=== PATIENT | female | born 1955 | race Caucasian/White ===

== ENCOUNTER 2019-03-15 14:23 | Inpatient (IN) | payer BC ==
[~2019-03-15] VITALS: Ht 165.1 cm; Wt 70.6 kg
[2019-03-15] MEDS ORDERED: HYDROCHLOROTHIA25 MG PO (15:00)
[2019-03-15] MEDS ORDERED: ESTRACE1 MG PO (15:00)
[2019-03-15] MEDS ORDERED: MOEXIPRIL HCL7.5 MG PO (16:48)
--- NOTE | 2019-03-15 17:59 | NUR ---
PT ADMITTED FROM ED. IV FLUIDS STARTED D5LR AT 125, IV POTASSIUMN INFUSING. PT STATES PAIN TOLERABLE AT THIS TIME, DENIES NAUSEA. PT ON ROOM AIR, LUNG SOUNDS CLEAR. BOWEL TONES ACTIVE, NPO AT THIS TIME. CMS INTACT, WITHOUT EDMEA. SKIN GROSSLY INTACT. ADMISSION INTAKE COMPLETED. PT DENIES OTHER NEEDS AT THIS TIME.
--- NOTE | 2019-03-15 18:00 | NUR ---
PT COMPLAINT OF BURNING FROM POTASSIUM INFUSION, RATE DECREASED TO 75 ML/HR, RUNNING CONCURRENTLY, PT INSTRUCTED TO NOTIFY RN IF PAIN CONTINUES.
--- NOTE | 2019-03-15 19:20 | NUR ---
ROUNDED CHARGE. PATIENT IS RESTING IN BED. PATIENT DENIES ANY COMMENTS, QUESTIONS OR CONCERNS. NO NEEDS NOTED. CALL LIGHT IN REACH.
--- NOTE | 2019-03-15 21:25 | NUR ---
walking hallways with . no c/o pain. NPO, mouth care done by self.
--- NOTE | 2019-03-15 23:55 | NUR ---
RESTING, NO DISTRESS, IVF INFUSING, CONTINUES TO BE NPO
--- NOTE | 2019-03-16 00:42 | NUR ---
UP TO BR, VOIDED, BACK TO BED. C/O 05/10 ABD PAIN, MEDICATED WITH DILAUDID 1MG IV. IVF INFUSING, NO C/O INFUSION SITE DISCOMFORT. CALL LIGHT AT BEDSIDE, STILL NPO
--- NOTE | 2019-03-16 03:09 | NUR ---
resting, awakes easily, no further c/o abd pain, no n/v. turns self in bed. ivf infusing w/o problems. call light at bedside.
--- NOTE | 2019-03-16 05:31 | NUR ---
CURRENTLY UP TO BR, VOIDING QS. INDEPENDENT. NO BM. NO FURTHER C/O ABD PAIN OR N.V. NO ADVERSE REACTIONT TO IV ABX. CALL LIGHT AT BEDSIDE. WALKED HALLWAYS LAST NIGHT. NPO
--- NOTE | 2019-03-16 06:13 | CONS ---
[facility] [address] [place], [place] [address] Signed DATE OF CONSULTATION: 03/15/2019 CHIEF COMPLAINT: Right upper quadrant abdominal pain. HISTORY OF PRESENT ILLNESS: Jacquie is a 64-year-old female who over the last couple days has had rather significant right upper quadrant abdominal pain with nausea and anorexia. She feels a little dehydrated, she said, because of her inability to drink and to eat. She has not had any vomiting. She has probably had symptoms for a year, but the last two days have been terrible. She finally came to the emergency room for evaluation. Here in the emergency room, she certainly was tender in the right upper quadrant with unremarkable vital signs. White count is normal, but her liver function tests and lipase are elevated. She also has a positive urinalysis. Her potassium is running a bit low as well. She underwent an ultrasound of right upper quadrant. There were multiple stones, sludge and thickened gallbladder wall with a positive Garza sign. The common bile duct is equivocally dilated. Consequently, I was asked to see her as a general surgeon on-call. In the meantime, she has received some IV fluid, cefepime, Flagyl and Toradol. PAST MEDICAL HISTORY: Hypertension and chronic vertigo. PAST SURGICAL HISTORY: , bilateral tubal ligation subsequently reversed later and exploratory laparotomy through a Pfannenstiel incision with an appendectomy and then later a full hysterectomy at age 41 because of strong family history of ovarian cancer. SOCIAL HISTORY: She does not smoke or drink. She is . She is a homemaker and drives. She has 2 children. Her 3rd child about 13 days after . They prefer the [facility], Dr. Jarrod Ni is her primary care provider. FAMILY HISTORY: Father of diabetes at age 32. Mom had obesity and rheumatic fever, ended up with aortic valve replacement by Dr. Lacey, followed by congestive heart failure and . REVIEW OF SYSTEMS: She had 10 systems reviewed. ALLERGIES: We talked at length about her morphine allergy. She was on a morphine drip and it dropped her respiratory rate. She ended up in the ICU, intubated for a short time. Also, codeine gives her hives and headache. Electronically Signed By: LUIS DANIEL ALLEN MD 03/16/19 0613 PATIENT NAME: JACQUIE REDMOND CONSULTATION DATE OF : 57 REPORT #: [id number] PHYSICIAN: LUIS DANIEL ALLEN MD PCP: JARROD NI MD REPORT IS CONFIDENTIAL AND NOT TO BE RELEASED WITHOUT AUTHORIZATION [facility] [address] [place], [place] [address] Signed MEDICATIONS: Hydrochlorothiazide, estradiol, and Univasc. PHYSICAL EXAMINATION: VITAL SIGNS: Her blood pressure is 108/66, her heart rate is 82, respiratory rate 16, temperature is 98.2. She is 100% on room air. She is 5 feet 5 inches and 67 kg. GENERAL: Jacquie is a 64-year-old female who generally appears healthy and at her stated age. She is lying supine in her ER bed. Her is in the room. She is uncomfortable but not toxic. She is not jaundiced. LUNGS: Clear to auscultation. HEART: Regular rate and rhythm. ABDOMEN: Soft and flat. She is tender with localized peritoneal signs and symptoms in the right upper quadrant to deep palpation. LABORATORY DATA: Her white blood cell count is 4.9, hemoglobin 16, neutrophils 60. Potassium is 3.3, BUN 12, creatinine 0.79, total bilirubin 1.6, AST 615, ALT 743, alkaline phosphatase 164, albumin 4.4, lipase 7490. Urinalysis showed white blood cells, leukocyte esterase, and bacteria. The urine culture of course is pending. RADIOGRAPHIC STUDIES: Ultrasound of the gallbladder was performed and has multiple stones with sludge and a thickened gallbladder wall with a positive Garza sign. The common bile duct is equivocally dilated. ASSESSMENT AND PLAN: Jacquie is a 64-year-old female who presents with classic gallstone pancreatitis. I reviewed her findings in detail with her and her . We discussed the location and function of the gallbladder. We discussed laparoscopic versus open cholecystectomy. They understand the expected intraop and postop course along with hospital course, and we had reviewed the risk as well. We also reviewed the potential for the ERCP. She has a 3-7% chance of having a stone in that common bile duct. In the meantime, we are going to admit her and treat her conservatively with IV fluids and some ice chips and antibiotics, and we will correct her potassium levels and repeat the labs in the morning. Possibly tomorrow the next day depending on her course, we will determine when we are able to do her surgery and whether or not she will need ERCP. They have expressed understanding and agreed above plan. Luis Daniel Allen MD Electronically Signed By: LUIS DANIEL ALLEN MD 03/16/19 0613 PATIENT NAME: JACQUIE REDMOND CONSULTATION DATE OF : 57 REPORT #: [id number] PHYSICIAN: LUIS DANIEL ALLEN MD PCP: JARROD NI MD REPORT IS CONFIDENTIAL AND NOT TO BE RELEASED WITHOUT AUTHORIZATION [address] [place] [address] Signed ALB/MODL /[id number] cc: Jarrod Ni MD Copies: JARROD NI MD ~ Electronically Signed By: LUIS DANIEL ALLEN MD 03/16/19 0613 PATIENT NAME: JACQUIE REDMOND CONSULTATION DATE OF : 57 REPORT #: [id number] PHYSICIAN: LUIS DANIEL ALLEN MD PCP: JARROD NI MD REPORT IS CONFIDENTIAL AND NOT TO BE RELEASED WITHOUT AUTHORIZATION
--- NOTE | 2019-03-16 08:00 | NUR ---
PT RESTING IN BED. PT COMPLAINT OF PAIN 5/10 TO ABD, GIVEN 0.5MG IV DILAUDID. PT ON ROOM AIR, LUNG SOUNDS CLEAR. PT NPO, BOWLE TONES ACTIVE. SECONDARY IV STARTED TO RIGHT ARM, POTASSIUM RIDER AND FLAGYL INFUSING, CONFIRMED COMPATIBILITY WITH PHARMACIST. PT WITHOUT EDEMA, CMS INTACT. DISCUSSED PLAN OF CARE FOR THE DAY. PLAN FOR LABS AFTER POTASSIUM INFUSION COMPLETED, POSSIBLE SURGERY TODAY. PT DENIES OTHER NEEDS AT THIS TIME.
--- NOTE | 2019-03-16 08:08 | NUR ---
PATIENT UP IN CHAIR FOR BREAKFAST. CALL LIGHT IN REACH. NO FURTHER NEEDS AT THIS TIME.
--- NOTE | 2019-03-16 08:38 | NUR ---
PATIENT IN BED RESTING. CALL LIGHT IN REACH. NO FURTHER NEEDS AT THIS TIME.
--- NOTE | 2019-03-16 09:21 | NUR ---
PATIENT IN BED RESTING WITH EYES CLOSED. CALL LIGHT IN REACH. NO FURTHER NEEDS AT THIS TIME.
[2019-03-16] MEDS ORDERED: CYCLOBENZAPRINE10 MG PO (10:15)
[2019-03-16] MEDS ORDERED: ZYRTEC10 MG PO (10:16)
--- NOTE | 2019-03-16 11:25 | NUR ---
THIS RN ASSUMING CARE OF PT. REPORT RECEIVED FROM MADISON BERTRAND. THIS RN TO ROOM TO CHECK ON PT. PT RESTING IN BED WITH EYES CLOSED. PT AWAKENS TO MOVEMENT IN ROOM. PT DENIES REQUESTS OR COMPLAINTS AT THIS TIME. CALL LIGHT WITHIN REACH. BED RAILS UP.
--- NOTE | 2019-03-16 11:35 | NUR ---
PUMP ALARMING, INFUSION AND FLUSH COMPLETE. PT REPORTS 5/10 PAIN. SEE MAR FOR MEDICATION GIVEN, ABX STARTED. PT RESTING IN BED. NO ADDITIONAL REQUESTS OR COMPLAINTS AT THIS TIME. CALL LIGHT WITHIN REACH.
--- NOTE | 2019-03-16 13:03 | NUR ---
PUMP ALARMING, IV FLUIDS COMPLETE. NEW BAG HUNG. PT REPROTS 0/10 PAIN AT THIS TIME. PT VISITING WITH . NO ADDITIONAL REQUESTS OR COMPLAINTS AT THIS TIME. CALL LIGHT WITHIN REACH. BED RAILS UP.
--- NOTE | 2019-03-16 13:18 | NUR ---
MADISON WATSON TAKING OVER CARE OF PT. REPORT GIVEN. QUESTIONS ASKED AND ANSWERED.
--- NOTE | 2019-03-16 13:50 | NUR ---
PT RESTIGN IN BED. PT STATES PAIN TOLERABLE AT THIS TIME. POTASSIUM CHLORIDE INFUSION COMPLETED, LAB NOTIFIED TO DRAW BMP. POTASSIUM PHOSPHATES INFUSING. DISCUSSED PLAN FOR BATH WIPE, AND SURERY THIS EVENING. NO ACUTE CHANGES. PT DENIES OTHER NEEDS AT THIS TIME.
--- NOTE | 2019-03-16 14:16 | NUR ---
PATIENT IN BED TALKING WITH VISITORS. CALL LIGHT IN REACH. NO FURTHER NEEDS AT THIS TIME.
--- NOTE | 2019-03-16 15:04 | EKG ---
[facility] [address] [facility] [place], [place] [address] Signed Normal sinus rhythm Right atrial enlargement Left bundle branch block Abnormal ECG No previous ECGs available Confirmed by SELENE MILES DO ([id number]) on 03/16/2019 3:04:24 PM Electronically Signed By: SELENE MILES DO 03/16/19 1504 PATIENT NAME: MUKUND REDMOND Electrocardiogram DATE OF : 57 PHYSICIAN: SELENE MILES DO REPORT #: [id number] REPORT IS CONFIDENTIAL AND NOT TO BE RELEASED WITHOUT AUTHORIZATION
--- NOTE | 2019-03-16 15:23 | NUR ---
POTASSIUM LEVELS INCREASED FROM 3.3 TO 4.7 AFTER KCL INFUSION, DISCUSSED POTASSIUM PHOSPHATE WITH PHARMACIST, PHARMACISTS STATES THAT TOTAL POTASSIUM INFUSION SHOULD BE OK BUT TO CONFIRM WITH MD REGARDING INFUSION. DR. ALLEN CALLED, DOCTOR STATES POTASSIUM PHOSPHATES SHOULD NO INCREASE POTASSIUM MUCH KCL AND TO CONTINUE THE INFUSION, NO NEW ORDERS AT THIS TIME.
--- NOTE | 2019-03-16 15:26 | NUR ---
PATIENT HAD PRESURGICAL WIPE DOWN. WARM BLANKET GIVEN.CALL LIGHT IN REACH.NO FURTHER NEEDS AT THIS TIME.
--- NOTE | 2019-03-16 15:48 | NUR ---
PT COMPLAINT OF NAUSEA AND PAIN, GIVEN 8 MG IV ZOFRAN AND 0.5 MG IV DILAUDID. PT RESTING IN BED. PT VOICING FEELING NERVOUS ABOUT SURGERY, EDUCATED ON WHAT TO EXPECT, QUESTIONS ANSWERED. PT DENIES OTHER NEEDS AT THIS TIME.
--- NOTE | 2019-03-16 18:38 | NUR ---
03/16/191837 Sabrina Steel 182-PATIENT ARRIVED TO PACU ON 10L MASK PATIENT NONAROUSABLE. ORAL AIRWAY IN PLACE. RN MAINTAINING OPEN AIRWAY WITH JAW THRUST. 4 LAP SITES CDI. ICE APPLIED. SR BBB AND ST DEPRESSION. IVF INFUSING. 1831-PATIENT NOT ABLE TO MAINTAIN OWN AIRWAY 6L MASK. YUE MOORE AT BEDSIDE PLACED NASAL AIRWAY IN MOUTH AND NOSE WITHOUT PATIENT RESPONDING HOB ELEVATED. RN CONTINUES TO HOLD AIWAY. RR EVEN.
--- NOTE | 2019-03-16 20:24 | NUR ---
returned from PACU. O2 3L NC, cont pulse ox in place. [address]. helped with transfer. scds in place. Coop w assessment.
--- NOTE | 2019-03-16 20:33 | NUR ---
VITALS AND I&OS DONE AND CHARTED.
--- NOTE | 2019-03-16 21:00 | NUR ---
PT WAS INCONTINENT OF URINE, WHOLE BED CHANGED. UP TO BR VOIDED OVER 1000CC CLEAR YELLOW URINE. WALKED AROUND ROOM SEVERAL TIMES. TOLERATED WELL. BACK TO BED. ABD 4 LAP SITES CDI. MAGDALENE, NOT PASSING GAS. IVF INFUSING W/O PROBLEMS. MED EDUCATION DONE R/T HEPARIN SQ, POST OP PRECAUTIONS, CLEAR LIQUID DIET, PT AND STATED UNDERSTANDING, SCDS IN PLACE. CPOX CONTINUOUS IN PLACE, SATS 99%, O2 2.5L NC AT THIS TIME, NO C/O PAIN.
--- NOTE | 2019-03-16 22:03 | NUR ---
medicatyed with 2-325mg po tylenol 2/10 Abd pain, awake, alert, o2 2.5L NC inplace, cont pulse ox in place sats 98%, r 16, not passing gas, angeles, scds in place, ivf infusing w/o problems, afebrile. warm blankets given on request
--- NOTE | 2019-03-17 01:11 | NUR ---
c/o 06/10 abd pain, gas, cramping. medicated with dilaudid 0.5mg IV. alert and oriented. abd lap sites cdi. abd HEA, not passing gas, no bm, scds in place. call light and fluids at bedside
--- NOTE | 2019-03-17 02:16 | NUR ---
HELPED PT TO THE BATHROOM AND BACK TO BED. FRESH JUICE GIVEN PER PT REQUEST. SCD'S AND PULSE OX PLUGGED IN. BEDSIDE TABLE AND CALL LIGHT IN REACH. PT NEEDS NOTHING MORE AT THIS TIME. 02 NASAL CANULA PUT ON WELL.
--- NOTE | 2019-03-17 04:32 | NUR ---
PT AWAKE, C/O ABD PAIN. WAS MEDICATED WITH TYLENOL AND DILAUDID 0.5MG IV WITH GOOD TO FAIR PAIN RELIEF. ABD TENDER, HEA, NOT PASSING GAS, NO BM. ABD LAP SITES X4 IN PLACE, CDI. UP TO B SEVERAL TIMES VOIDING QS. IVF INFUSING W/O PROBLEMS. CALL LIGHT AT BEDSIDE, SCDS IN PLACE
--- NOTE | 2019-03-17 04:40 | NUR ---
PT REPORTS 5/10 PAIN. AFTER SCANNING PO DILAUDID, ALLERGY WARNING TO MORPHINE WAS NOTED. PT HAS BEEN RECEIVING IV DILAUDID AND HAS HAD NO SIGNS OF ADVERSE REACTION OR ALLERGY. PER TELEPHARMACY, MEDICATIONS BELONGS TO A SIMILAR CLASS, BUT IS OKAY TO GIVE.
--- NOTE | 2019-03-17 05:28 | NUR ---
MORNING VS COLLECTED AND STABLE. PT RECENTLY UP SBA TO VOID. PT RECENTLY MEDICATED WITH PO DILAUDID, REPORTS SHE IS "FEELING BETTER". DENIES ADDITIONAL NEEDS, CALL LIGHT IN REACH.
--- NOTE | 2019-03-17 07:38 | NUR ---
REPORT RECEIVED FROM DEAN OF GIRLS RN. PT SITTING UP IN BED. REPORTS PAIN OF 3/10. WORKING ON IS. CPOX IN PLACE. PT ON RA SATTIGN AT 97%. LAP SITES C/D/I. CALL LIGHT IN REACH. BREAKFAST ORDERED. DENEIS FURTHER NEEDS.
--- NOTE | 2019-03-17 07:45 | NUR ---
PATIENT SITTING UP IN BED. CALL LIGHT WITHIN REACH. NO OTHER NEEDS AT THIS TIME
--- NOTE | 2019-03-17 07:52 | NUR ---
spoke to dayshift charger operator tina regarding pt's iv fluid rate. charge to clarify with md in am meeting.
--- NOTE | 2019-03-17 08:16 | NUR ---
PT REPORTING 5/10 PAIN. PRN TYLENOL GIVEN. TOLLERATING REGULAR BREAKFAST WITHOUT N/V. BOWEL TONES HYPERACTIVE. PT REPORTS PASSING FLATUS. LR AT 55ML/HR INFUSING. CALL LIGHT IN REACH
--- NOTE | 2019-03-17 08:22 | OR ---
[facility] [address] [place], [place] [address] Signed DATE OF OPERATION: 03/16/2019 SURGEON: Luis Daniel Allen MD PREOPERATIVE DIAGNOSES: 1. Cholecystitis, cholelithiasis. 2. Gallstone pancreatitis. POSTOPERATIVE DIAGNOSES: 1. Cholecystitis, cholelithiasis. 2. Gallstone pancreatitis. PROCEDURE PERFORMED: Laparoscopic cholecystectomy with intraoperative cholangiogram. ESTIMATED BLOOD LOSS: Minimal. FINDINGS: There may be a 3 mm filling defect in the distal common bile duct. It appeared to be mobile. There may have been a small air bubble in the cystic duct as well. She had multiple 3-4 mm yellow cholesterol stones inside her gallbladder. INDICATIONS: Jacquie is a 64-year-old female, who over the last couple of days had rather significant right upper quadrant abdominal pain with nausea. She finally came to emergency room for evaluation. She was certainly tender in the right upper quadrant. White count was normal. Her potassium was little low and her liver function tests were elevated with a total bilirubin 1.6, AST 615, ALT 743, alkaline phosphatase 164, and lipase is 7490. There was also possibility she has urinary tract infection. She was also little dehydrated. Ultrasound showed sludge and multiple stones in the gallbladder with some thickening to the gallbladder wall, a positive Garza sign, and an equivocally dilated common bile duct. I was asked to admit her as a general surgeon on-call. She was hydrated and given antibiotics and pain control. Specifically, she was given Dilaudid and tolerated that quite nicely. By the morning, I could see that her mucous membranes were markedly improved along with her skin turgor. Her laboratory work was also markedly improved. Her abdominal pain also was less than half in the right upper quadrant. I had reviewed with Jacquie and her the location and function of the gallbladder. We discussed laparoscopic versus open cholecystectomy. We also reviewed the expected intraop and postop course. There is risk to surgery including not limited Electronically Signed By: LUIS DANIEL ALLEN MD 03/17/19 0822 PATIENT NAME: JACQUIE REDMOND OPERATIVE REPORT DATE OF : 57 REPORT #: [id number] PHYSICIAN: LUIS DANIEL ALLEN MD PCP: JARROD BASURTO MD REPORT IS CONFIDENTIAL AND NOT TO BE RELEASED WITHOUT AUTHORIZATION [facility] [address] [place] [id number] Signed to gas, bloating, crampy abdominal pain, bleeding, perforation requiring surgery, and missed diagnosis. I also explained to Jacquie of all the patient's who come to us with gallstones, 3% to 7% of those patients will have a stone in the distal common bile duct. Those patient's gently require an ERCP in order to remove the stone. She and her expressed understanding and wished to proceed. PROCEDURE NOTE: I had met with Jacquie once again in our preop area along with her . After answering the questions, Jacquie was taken in the operating room and placed in the supine position. She was given general endotracheal tube anesthesia. She was already on preoperative antibiotics along with subcutaneous heparin. SCDs were in place. She was then prepped and draped in the usual sterile fashion. All trocars were then placed in usual positions under direct visualization of the camera without difficulty. The gallbladder was grasped and elevated into the right upper quadrant. She has long arms and legs and a long torso and her liver is a bit long and the gallbladder was back up underneath the liver a bit more than usual. As we approached the gallbladder, we had to lift the medial portion of the right lobe of the liver up and out of the way in order to access the area of the triangle of Calot and cystic duct. We could tell there was some edema at the gallbladder wall. It was a bit tense. We went ahead and cleared off the surrounding omentum and bluntly dissected out the triangle of Calot. A clip had been placed on the cystic artery and it was divided. The intraoperative cholangiocatheter inserted into the cystic duct and the intraoperative cholangiogram was performed. The findings are as above. Usually, we would place a PDS Endoloop, but with difficulty with the long redundant lobe of the liver, we went ahead and placed 2 clips completely across the full width of the cystic duct. The gallbladder was then carefully removed from the gallbladder fossa with the help of the cautery and placed into an EndoCatch bag. The right upper quadrant was irrigated and suctioned out until clear. After this, we used our laparoscopic suturing device to pass 0 Vicryl suture on either side of the fascia of the subxiphoid trocar site. This was tied down to close this fascia primarily. The gas was then allowed to escape and all the trocars removed along with the gallbladder. The gallbladder was opened on the back table by our circulating nurse. It has had multiple 3-4 mm yellow cholesterol stones. It also appeared to be a bit edematous. After this, we closed the fascia of the supraumbilical trocar site with interrupted simple and [id number] 0 Vicryl sutures. Local anesthetic was copiously injected into all trocar sites. Each trocar site was irrigated and suctioned out until clear. The skin and dermis were then closed with interrupted 3-0 subcuticular Monocryl sutures. Dry gauze and tape were applied to all incisions. Jacquie was then awakened from her anesthesia, extubated in the OR, and taken to recovery room in stable condition. Electronically Signed By: LUIS DANIEL ALLEN MD 03/17/19 0822 PATIENT NAME: JACQUIE REDMOND OPERATIVE REPORT DATE OF : 57 REPORT #: [id number] PHYSICIAN: LUIS DANIEL ALLEN MD PCP: JARROD BASURTO MD REPORT IS CONFIDENTIAL AND NOT TO BE RELEASED WITHOUT AUTHORIZATION [address] [place], [place] [address] Signed MD ROEL George/REGIS /[id number] cc: MD Jarrod George MD Copies: LUIS DANIEL ALLEN MD, JONATHAN MD ~ Electronically Signed By: LUIS DANIEL ALLEN MD 03/17/19 0822 PATIENT NAME: JACQUIE REDMOND OPERATIVE REPORT DATE OF : 57 REPORT #: [id number] PHYSICIAN: LUIS DANIEL ALLEN MD PCP: JARROD BASURTO MD REPORT IS CONFIDENTIAL AND NOT TO BE RELEASED WITHOUT AUTHORIZATION
--- NOTE | 2019-03-17 09:37 | NUR ---
PATIENT RESTING IN BED. VITAL SIGNS AND I&O DONE. PATIENT ASKS FOR PAIN MEDICINE AND DIET SODA. RN NOTIFIED. SODA GIVEN. PATIENT GOES TO USE BATHROOM. ONE PERSON ASSISTING. PATIENT BACKS TO BED. CALL LIGHT WITHIN REACH. NO OTHER NEEDS AT THIS TIME
--- NOTE | 2019-03-17 09:55 | NUR ---
PT STATES SHE IS HAVING INCREASED FLATUS AND THINKS SHE MAY HAVE BM SOON, REQUESTED PAIN MEDICATION FOR CRAMPING. DILAUDID 2MG GIVEN.
--- NOTE | 2019-03-17 10:16 | NUR ---
PT ASKED IF SHE COULD HAVE SECOND PAIN PILL, RATES PAIN 5/10 NOW. DILAUDID 2MG GIVEN. LUNCH TRAY JUST DELIVERED. DENIES ANY NAUSEA.
--- NOTE | 2019-03-17 10:45 | NUR ---
PATIENT AMBULATING IN ROOM.
[2019-03-17] MEDS ORDERED: KEFLEX500 MG PO (10:55)
[2019-03-17] MEDS ORDERED: NORCO 5-325 TA1 EACH PO (10:56)
--- NOTE | 2019-03-17 11:25 | NUR ---
PATIENT SITTING UP IN BED. PATIENT REFUSED SHOWER BECAUSE SHE IS GOING TO BE DISCHARGE AND WANTS TO TAKE A SHOWER IN HOME. CALL LIGHT WITHIN REACH. NO OTHER NEEDS AT THIS TIME
--- NOTE | 2019-03-17 11:56 | NUR ---
PATIENT SITTING UP IN CHAIR. IN ROOM. FINAL VITAL SIGNS WERE OBTAINED PRIOR TO DISCHARGE FROM THE UNIT
--- NOTE | 2019-03-18 08:10 | DS ---
[facility] [address], [place] [address] Signed ADMISSION DATE: 03/15/2019 DISCHARGE DATE: 03/17/2019 FINAL DIAGNOSES: 1. Cholecystitis, cholelithiasis. 2. Biliary pancreatitis. 3. Urinary tract infection (streptococcus). PROCEDURE PERFORMED: Laparoscopic cholecystectomy with intraoperative cholangiogram. HISTORY OF PRESENT ILLNESS: Jacquie is a 64-year-old female, overall pretty healthy. She came with two days of right upper quadrant abdominal pain and nausea. In the emergency room, her liver function tests and her lipase were elevated. The urinalysis came back with streptococcus. Gallbladder ultrasound showed the sludge, stones, thickened gallbladder wall, and a positive Garza sign with an equivocally dilated common bile duct. She was therefore admitted to general surgery service on cefepime and Flagyl. HOSPITAL COURSE: Jacquie was admitted as above. We took her to the OR that next morning after she was hydrated. She had an uncomplicated laparoscopic cholecystectomy with intraoperative cholangiogram. She probably had an air bubble in the cystic duct and possibly a tiny 3 mm filling defect in the distal common bile duct. Her laboratory work did improve markedly. She had felt much better. She is sensitive to narcotics, including the morphine she had previously, and the Dilaudid we gave her here in the hospital. She is not allergic, simply sensitive to that. Consequently, she stayed overnight. We kept her on a continuous pulse oximeter and she has done quite well. All other incisions were unremarkable. Her abdominal exam is quite benign at this point. She is tolerating diet. We are going to be discharging her to home. Because of urinary tract infection with streptococcus, we are going to add Keflex 500 mg p.o. q.i.d. for 5 days. DISCHARGE PLANS AND MEDICATIONS: Jacquie will be discharged to home with a prescription for [place] 5/325 one tablet p.o. q.6 hours p.r.n. for severe postoperative pain. We will give her 20 tablets with no refills. She is welcome to use ibuprofen, Tylenol, or Aleve [id number]-vwr-[id number] for jcmy-uc-lcnqvjyv postoperative pain. We did add Keflex 500 mg p.o. q.i.d. for 5 days for urinary tract infection with her streptococcus. She can follow a regular diet. She can perform her activities of daily living including walking up and down stairs and showering and bathing as usual. She should not do any heavy pushing, pulling, or lifting over 20 pounds. Her blood pressures have been a little soft, so we asked her to Electronically Signed By: LUIS DANIEL ALLEN MD 03/18/19 0810 PATIENT NAME: JACQUIE REDMOND DISCHARGE SUMMARY DATE OF : 57 REPORT #: [id number] PHYSICIAN: LUIS DANIEL ALLEN MD PCP: JARROD NI MD REPORT IS CONFIDENTIAL AND NOT TO BE RELEASED WITHOUT AUTHORIZATION [address] [address] Signed hold her blood pressure pills for a couple of days and then resume those. She is going to keep her appointment with Dr. Ni for later this month for her blood pressure checkup. I will see her in 7 to 10 days for surgical followup. She has expressed understanding and agrees to above plan. Luis Daniel Allen MD ALB/MODL /[id number] cc: MD Luis Daniel Lowry MD Copies: JARROD NI MD, ANDREW L MD ~ Electronically Signed By: LUIS DANIEL ALLEN MD 03/18/19 0810 PATIENT NAME: JACQUIE REDMOND DISCHARGE SUMMARY DATE OF : 57 REPORT #: [id number] PHYSICIAN: LUIS DANIEL ALLEN MD PCP: JARROD NI MD REPORT IS CONFIDENTIAL AND NOT TO BE RELEASED WITHOUT AUTHORIZATION
== END 2019-03-17 12:05 | disposition home or self-care (01) | DRG 417 ==
LOC: ED 14:23 → MS 16:56
PROVIDERS: ADMIT Colon & Rectal Surgery
PROC: BF101ZZ Fluoroscopy of Bile Ducts using Low Osmolar Contrast (ICD-10-PCS; 2019-03-16)
PROC: 0FT44ZZ Resection of Gallbladder, Percutaneous Endoscopic Approach (ICD-10-PCS; principal; 2019-03-16 17:15)
DX: K80.10 Calculus of gallbladder with chronic cholecystitis without obstruction (principal); K85.10 Biliary acute pancreatitis without necrosis or infection; N39.0 Urinary tract infection, site not specified; B95.5 Unspecified streptococcus as the cause of diseases classified elsewhere; I10 Essential (primary) hypertension; E87.6 Hypokalemia; R42 Dizziness and giddiness; Z88.5 Allergy status to narcotic agent; Z79.890 Hormone replacement therapy; Z79.899 Other long term (current) drug therapy; Z90.710 Acquired absence of both cervix and uterus
CPT/HCPCS: 00790; 36415; 74300; 76705; 80048; 80053; 81001; 83690; 83735; 84100; 85025; 87088; 87147; 93005; 93010; 94762; 96361; 96365; 96375; 99285-25; J0330; J0692; J1100; J1170; J1644; J1885; J2250; J2310; J2405; J2704; J2765; J3010; J3480; J7030; J7060; J7120; Q9967